=== PATIENT | male | born 1985 | race Native Hawaiian/Other Pacific Islander ===

== ENCOUNTER 2022-04-23 14:40 | Emergency (ER) | payer OTHER ==
[~2022-04-23] VITALS: Ht 170.2 cm; Wt 70.3 kg
[2022-04-23 15:25] VITALS: BP 119/74; TEMP 98.2
== END 2022-04-23 15:30 | disposition home or self-care (01) ==
LOC: ED 14:40
DX: S39.012A Strain of muscle, fascia and tendon of lower back, initial encounter (principal); X50.1XXA Overexertion from prolonged static or awkward postures, initial encounter; Y93.01 Activity, walking, marching and hiking; Y92.89 Other specified places as the place of occurrence of the external cause
CPT/HCPCS: 96372; 99282; J1885; J2360

== ENCOUNTER 2022-07-02 14:20 | Emergency (ER) | payer OTHER ==
[~2022-07-02] VITALS: Ht 170.2 cm; Wt 59.9 kg
[2022-07-02 16:20] VITALS: BP 129/77; TEMP 98.1
== END 2022-07-02 16:20 | disposition home or self-care (01) ==
LOC: ED 14:20
DX: J03.90 Acute tonsillitis, unspecified (principal); F17.210 Nicotine dependence, cigarettes, uncomplicated
CPT/HCPCS: 87651; 96372; 99283; J0696; J1885